=== PATIENT | female | born 1965 | race Caucasian/White ===

== ENCOUNTER 2020-10-01 17:23 | Emergency (ER) | payer OTHER, SELFPAY ==
[2020-10-01 17:35] VITALS: BP 123/83; PULSE 117; RESP 16; TEMP 38; O2SAT 98
[2020-10-01] MEDS: TETANUS,DIPHTHERIA,AC PERTUSSIS ADULT (0.5 ML) BOOSTRIX IM (17:49)
--- NOTE | 2020-10-01 18:05 | ED.WOUNDLAC ---
HPI - Wound/Laceration General Chief Complaint: Wound/Laceration Stated Complaint: rash/fish hook injury Time Seen by Provider: 10/01/20 17:44 Source: patient and RN notes reviewed Mode of arrival: ambulatory Limitations: no limitations History of Present Illness HPI narrative: Patient presents today with 2 concerns. She believes that she was exposed to poison rosemarie/sumac/oak while she was cleaning a wood pile last night near her home and she has developed a pruritic rash causing swelling to her face. She has tried no treatment prior to arrival as she does not have anything at home and did not have a ride to go obtain any [id number]-[id number] medication. She has been applying ice without relief. Denies shortness of breath or difficulty swallowing. Denies swelling of the lips or tongue. Patient also states she has had a fishhook embedded in her left second finger for the past 8 hours. She cut the hook off and has been waiting for a ride at home for transport to urgent care for removal. She currently rates the pain in her finger 7/10, which increases with movement. She has not tried any OTC interventions for pain as she did not have any medication for pain at home prior to arrival. Denies numbness or tingling in the finger. States she has significant rheumatoid arthritis and has swelling in the fingers at baseline. She does not currently have a PCP. Related Data Allergies Allergy/AdvReac Type Severity Reaction Status Date / Time No Known Allergies Allergy Verified 10/01/20 17:33 Review of Systems Review of Systems: Narrative: CONSTITUTIONAL: Denies body aches, fever, chills, or sweats. EYES: Denies visual changes, redness, or discharge. ENT: Denies rhinorrhea, congestion, sore throat, or otalgia. CARDIOVASCULAR: Denies chest pain, palpitations, or edema. RESPIRATORY: Denies cough or dyspnea. GASTROINTESTINAL: Denies abdominal pain, nausea, vomiting, or diarrhea. GENITOURINARY: Denies dysuria or hematuria. SKIN: + Pruritic rash to face. Embedded fishhook to left second finger MUSCULOSKELETAL: Denies back pain, joint pain, or myalgia. NEUROLOGIC: Denies headache, numbness, tingling, or weakness. PSYCH: Denies depression or anxiety. [facility] Past Medical History Medical History (Updated 10/02/20 @ 08:49 by ANDRE MohamudP, ) Rheumatoid arthritis Surgical History Surgical History (Updated 10/02/20 @ 08:50 by Nicci Hargrove, CRIS, ) H/O thyroidectomy H/O tubal ligation Hx of tonsillectomy Comments At time of signature, I have reviewed and agree with nursing past medical, surgical, social and family history unless otherwise noted. Please see nursing chart for further information. There is no relevant family history pertinent to the presenting complaint Exam Narrative: Exam Narrative: GENERAL: Chronically ill-appearing, well-nourished, and in no acute distress. HEAD: Normocephalic. EYES: EOMI. PERRL. No redness or drainage. Conjunctivae normal. ENT: Mucous membranes pink and moist. Nares clear. No rhinorrhea. Throat normal. Uvula midline. Mild swelling with faintly erythematous maculopapular rash to forehead and bilateral cheeks, causing swelling to the bilateral upper and lower eyelids. No induration, drainage. NECK: Normal AROM. Supple. No lymphadenopathy. CHEST: No respiratory distress. EXTREMITIES: embedded fish hook to dorsum of DIP of left second finger with mild surrounding erythema. All fingers with chronic rheumatological joint swelling. Distal sensation intact. Capillary refill normal. AROM of the affected finger is limited due to foreign body, pain, and chronic joint swelling. SKIN: Warm, dry. Capillary refill normal. Normal skin turgor. NEURO: No focal deficits. Alert and oriented x3. Gait steady. PSYCH: Normal affect. No signs of depression or anxiety. Course Vital Signs Vital signs: Vital Signs Temperature 100.4 F H 10/01/20 17:35 Pulse Rate 117 H 10/01/20 17:35 Respiratory
== END 2020-10-01 18:13 | disposition home or self-care (01) ==
PROVIDERS: Emergency Provider Nurse Practitioner
DX: L25.9 Unspecified contact dermatitis, unspecified cause (principal); S61.241A Puncture wound with foreign body of left index finger without damage to nail, initial encounter; X58.XXXA Exposure to other specified factors, initial encounter; Z23 Encounter for immunization; M06.9 Rheumatoid arthritis, unspecified
CPT/HCPCS: 10120; 90471; 90715; 99203; G0463

== ENCOUNTER 2021-12-06 17:03 | Inpatient (IN) | payer OTHER, SELFPAY ==
--- NOTE | ~2021-12-06 | CT_ITS ---
EXAMINATION: CTA chest PE protocol DATE: 12/11/2021 13:12 INDICATION: Shortness of breath. TECHNIQUE: Computed tomography angiography (CTA) of the chest was performed with 100 mL Omnipaque-350 intravenous contrast timed to evaluate the pulmonary arteries. Coronal maximum intensity projection 3D-reconstructions were created by the technologist. Automated exposure control and iterative reconst ruction technique were employed. The dose-length product was 255.22 mGy-cm. COMPARISON: Chest 2 views 12/06/2021 FINDINGS: There are patchy airspace and groundglass opacities with septal thickening throughout the l ungs. No pleural effusion. The heart size is normal. No pericardial effusion. There is no pulmonary e mbolus. There is a large sliding hiatal hernia. There is severe cervical and thoracic spondylosis. Th ere is mild chronic anterior wedging of multiple thoracic vertebral bodies. IMPRESSION: 1. No pulmonary embolus. 2. Diffuse lung disease, consistent with COVID-19 pneumonia. 3. Large sliding hiatal hernia. Reviewed, dictated and finalized at location A. EW MANAGER
--- NOTE | ~2021-12-06 | XR_ITS ---
XR chest 2V DATE: 12/06/2021 17:27 INDICATION: Cough, fever TECHNIQUE: PA and lateral views COMPARISON: None FINDINGS: There are extensive patchy infiltrates scattered throughout both lungs, consistent with frankie ateral Covid pneumonia. Normal heart size. No pleural effusion or pulmonary vascular congestion or pneumothorax. Diffuse osteopenia. IMPRESSION: Extensive patchy bilateral pulmonary infiltrates consistent with Covid pneumonia Reviewed, dictated and finalized at location A. ETING ADMIN IMPRESSION: Extensive patchy bilateral pulmonary infiltrates consistent with Co vid pneumonia
[2021-12-06 17:07] VITALS: BP 110/65; PULSE 122; RESP 20; TEMP 37.8; O2SAT 91
--- NOTE | 2021-12-06 17:09 | ECG_ITS ---
Measurements Intervals [place] Rate: 138 P: 58 TN: 148 QRS: 32 QRSD: 90 T: 38 QT: 353 QTc: 537 Interpretive Statements SINUS TACHYCARDIA BASELINE ARTIFACT- I, II, III, AVR, AVL, AVF, V4-V6 ABNORMAL ECG Electronically Signed On 12-06-2021 21:06:21 LEAD PERSON by Humberto Muñoz D.O.
[2021-12-06 19:09] LABS: Basophils Percent Auto 0.3 % (0.2-1.2); Hematocrit 36.6 % (37.0-47.0); Hemoglobin 11.7 g/dL (12.0-15.0); Immature Granulocyte Absolute 0.06 K/mm3 (0.00-0.031); Immature Granulocyte Percent A 0.6 % (0-0.5); Lymphocytes Percent Auto 4.1 % (18.3-44.2); Mean Corpuscular Hemoglobin 25.9 pg (26-34); Mean Corpuscular Volume 81.2 fl (80-100); Mean Platelet Volume 10.7 fl (7.4-10.4); Monocytes Absolute Auto 0.3 K/mm3 (0.1-0.6); Monocytes Percent Auto 3.3 % (2.6-8.5); Neutrophils Percent Auto 91.7 % (45.5-73.1); Platelet Count Result 461 k/mm3 (150-375); Red Blood Count 4.51 M/mm3 (4.2-5.4); White Blood Count 9.9 K/mm3 (4.5-10.0)
[2021-12-06 19:19] LABS: INR 1.1; Prothrombin Time 13.7 Seconds (11.1-14.7)
[2021-12-06 19:20] LABS: Alanine Aminotransferase 31 U/L (4-35); Albumin Level 3.9 g/dL (3.5-5.1); Alkaline Phosphatase 85 U/L (38-126); Anion Gap 10 mmol/L (8-16); Aspartate Amino Transferase 75 U/L (14-36); Bilirubin,Total 0.7 mg/dL (0.2-1.3); Blood Urea Nitrogen 10 mg/dL (7-17); Calcium 8.3 mg/dL (8.4-10.2); Carbon Dioxide 26 mmol/L (22-30); Chloride 96 mmol/L (98-107); Estimated CRCL calculation 90 ml/min; Estimated Glomerular Filt Rate > 60; Glucose 190 mg/dL (65-110); Lipase 43 U/L (23-300); Partial Thromboplastin Time 28.8 SECONDS (22.3-36.8); Sodium 132 mmol/L (137-145)
[2021-12-06 19:31] LABS: Troponin I < 0.012 ng/mL (0.000-0.034)
[2021-12-06 20:42] VITALS: BP 100/71; PULSE 94; TEMP 37.1; O2SAT 93
[2021-12-06 22:24] LABS: Troponin I < 0.012 ng/mL (0.000-0.034)
[2021-12-06 23:15] VITALS: PULSE 84; O2SAT 95
[2021-12-06 23:17] VITALS: BP 116/74; PULSE 91; RESP 18; O2SAT 94
[2021-12-06 23:31] VITALS: BP 100/62; PULSE 80; RESP 22; O2SAT 94
[2021-12-06 23:44] LABS: Lactate Dehydrogenase 1109 U/L (313-618)
[2021-12-06 23:46] VITALS: BP 100/68; PULSE 91; RESP 25; O2SAT 98
[2021-12-07] VITALS (12 sets, daily range): BP systolic 94–116; BP diastolic 67–80; PULSE 70–97; RESP 16–34; TEMP 36.1–36.7; O2SAT 92–97
[2021-12-07] MEDS: ALBUTEROL SULFATE (*SP) INHALER 4 PUFF INHALATION (00:17)
[2021-12-07 00:19] LABS: Alveolar/Arterial O2 Gradient 53.4 mmHg; Base Excess ABG 4.2 mEq/l (+/-2.0); Fractional Inspired Oxygen 21 %; HCO3 ABG 26.8 mEq/l (22.0-26.0); Oxygen Saturation ABG 92.2 % (95.0-100.0); Oxyhemoglobin 89.6 % THb (90.0-100.0); PCO2 ABG 33.7 mmHg (35.0-45.0); PO2 FiO2 Ratio Arterial Blood 2.67 %; Total Hemoglobin 11.9 g/dL (12.0-18.0)
[2021-12-07 00:22] LABS: pH ABG 7.519 (7.350-7.450)
--- NOTE | 2021-12-07 00:39 | ED.SOB ---
HPI - SOB/Dyspnea General Chief Complaint: Shortness of Breath/Dyspnea Stated Complaint: sob, coughing blood Time Seen by Provider: 12/06/21 22:59 Source: patient Mode of arrival: ambulatory Limitations: no limitations History of Present Illness HPI Narrative: 56-year-old female Takes no medications, smokes a pack a day, and is not immunized against Covid for reasons unknown She notes that she went to a large gathering around and got sick several days after that and has had progressively increasing shortness of breath and cough for a week or so She has body aches and a low-grade temp Related Data Allergies Allergy/AdvReac Type Severity Reaction Status Date / Time No Known Allergies Allergy Verified 12/06/21 23:18 Review of Systems Review of Systems: All systems reviewed & are unremarkable except as noted in HPI and below Constitutional: Constitutional: Reports no additional constitutional complaints, Denies chills, Reports fatigue, Reports fever(s), Denies headache(s) and Reports weakness Eyes: Eyes: Reports no additional eye complaints and Denies change in vision ENT: Denies headache(s) and Denies sore throat Cardiovascular: Cardiovascular: Denies chest pain and Denies dyspnea Respiratory: Respiratory: Reports cough and Reports dyspnea Gastrointestinal: Gastrointestinal: Denies abdominal pain, Denies diarrhea and Denies vomiting Genitourinary: Genitourinary: Denies urinary frequency and Denies dysuria Musculoskeletal: Musculoskeletal: Reports myalgias, Denies deformity, Denies arthralgias, Denies joint swelling and Denies numbness Integumentary/Breasts: Skin/Breast: Denies rash and Denies wounds Neurologic: Reports headache(s), Denies focal weakness and Denies numbness Psychiatric: Psychiatric: Reports no additional psychiatric complaints Endocrine: Endocrine: Reports no additional endocrine complaints Hematologic/Lymphatic: Hematologic/Lymphatic: Reports no additional hematologic/lymphatic complaints Allergic/Immunologic: Allergic/Immunologic: Reports no additional allergic/immunologic complaints [facility] Past Medical History Medical History Rheumatoid arthritis Surgical History Surgical History H/O thyroidectomy H/O tubal ligation Hx of tonsillectomy Exam Const: General: cooperative and alert Orientation/consciousness: patient oriented x3 (alert) HENMT: Head: normal to inspection, normocephalic and atraumatic Ears: external ears normal General nose exam: no epistaxis Mouth: Yes dry mucous membranes Eyes: Conjunctivae: conjunctivae normal EOM: EOMs intact bilaterally Neck: Neck: normal visual inspection, no lymphadenopathy, supple and no JVD Resp: Effort & Inspection: normal respiratory effort and not labored Auscultation: crackles, no rales, rhonchi, no wheezes and other (BS =) Cardio: Rate: regular rate and tachycardic Rhythm: regular rhythm Heart sounds: no murmurs GI: GI Palp: Yes Soft to palpation and No Tenderness to palpation present (GI) Skin: General skin exam: normal color and no rashes or lesions noted Neuro: General: patient oriented x3 (alert) and moves all extremities Speech: normal speech Extrem: General: normal to inspection and no pedal edema Psych: Affect: normal affect Course Course Emergency Course: Discussed with hospitalist for admission Vital Signs Vital signs: Vital Signs Temperature 37.8 C H 12/06/21 17:07 Pulse Rate 122 H 12/06/21 17:07 Respiratory Rate 20 12/06/21 17:07 Blood Pressure 110/65 12/06/21 17:07 Pulse Oximetry 91 12/06/21 17:07 Temperature 37.1 C 12/06/21 20:42 Pulse Rate 89 12/07/21 00:19 Respiratory Rate 20 12/07/21 00:19 Blood Pressure 102/80 12/07/21 00:01 Pulse Oximetry 94 12/07/21 00:01 MDM - SOB/Dyspnea Lab Data Result diagrams: 12/06/21 18:53 12/06/21 1
[2021-12-07] MEDS: POTASSIUM CHLORIDE 20 MEQ PACKET (FOR LIQUID) 60 MEQ PO (00:40)
--- NOTE | 2021-12-07 00:43 | PM.IMHP ---
H&P: HPI History of Present Illness Date/Time: 12/07/21 00:43 Chief Complaint: Shortness of breath Narrative: This is a 56-year-old female with no significant past medical history, patient presented to the emergency room due to worsening shortness of breath for now for 3 weeks or so patient had a gathering at her house and several of the visitors turned out positive with COVID patient tested positive for COVID about 3 weeks ago as well and she has progressively gotten more short of breath has cough with sputum production, generalized malaise, fevers ,rigors ,chills, poor appetite, body aches and pains. Preliminary workup was significant for chest x-ray with diffuse bilateral lung infiltrates. Patient has been admitted for further evaluation, management and treatment Review of Systems Review of Systems: Shortness of breath, cough productive of sputum , poor appetite, generalized malaise, body aches and pain, fatigue. Constitutional: Constitutional: Reports chills, Reports fatigue, Reports fever(s), Reports lethargy, Reports malaise, Reports poor appetite and Reports weakness Eyes: Eyes: Denies change in vision ENT: Denies dysphagia, Denies vertigo, Denies dizziness, Denies nasal congestion, Denies nasal discharge, Denies nasal obstruction and Denies odynophagia Cardiovascular: Cardiovascular: Denies pedal edema, Denies claudication, Denies leg edema, Denies radiating jaw, neck or arm pain, Denies palpitations, Denies dyspnea on exertion and Denies orthopnea Respiratory: Respiratory: Reports change in phlegm color, Reports cough, Reports excessive phlegm production and Reports dyspnea Gastrointestinal: Gastrointestinal: Denies abdominal pain, Denies dyspepsia, Denies heartburn, Denies diarrhea, Denies nausea and Denies vomiting Genitourinary: Genitourinary: Denies dysuria Musculoskeletal: Musculoskeletal: Reports myalgias Integumentary/Breasts: Skin/Breast: Denies rash Neurologic: Denies vertigo, Denies dizziness, Denies focal weakness and Denies Sensory deficit (Neuro) Psychiatric: Psychiatric: Reports no additional psychiatric complaints and Reports as per HPI Endocrine: Endocrine: Denies heat intolerance, Denies increase in ring/shoe/hat size, Denies polyphagia, Denies polydipsia, Denies polyuria and Denies palpitations Hematologic/Lymphatic: Hematologic/Lymphatic: Reports no additional hematologic/lymphatic complaints and Reports as per HPI Allergic/Immunologic: Allergic/Immunologic: Reports no additional allergic/immunologic complaints and Reports as per HPI PMFSH Past Medical History Medical History Rheumatoid arthritis Surgical History Surgical History H/O thyroidectomy H/O tubal ligation Hx of tonsillectomy Social History Social History Smoking packs per day: 1 Smoking cigarettes per day: 20.0 Years smoked: 40 Smoking pack-years: 40.00 Smoking status: Current every day smoker Tobacco type: cigarettes Alcohol intake: former Substance use: current Substance use type: marijuana Other substance usage details: occasional marjuana use per patient Spiritual care concerns: No Meds Home Medications and Allergies Allergies Allergy/AdvReac Type Severity Reaction Status Date / Time No Known Allergies Allergy Verified 12/06/21 23:18 Vital Signs Vital Signs - 24 hr 12/06/21 17:07 12/06/21 20:42 12/06/21 23:15 Temperature 100.1 F H 98.8 F Pulse Rate 122 H 94 84 Respiratory Rate 20 Blood Pressure 110/65 100/71 Pulse Oximetry 91 93 95 12/06/21 23:17 12/06/21 23:31 12/06/21 23:46 Temperature Pulse Rate 91 80 91 Respiratory Rate 18 22 H 25 H Blood Pressure 116/74 100/62 100/68 Pulse Oximetry 94 94 98 12/07/21 00:01 12/07/21 00:19 Temperature Pulse Rate 86 89 Respiratory Rate 34 H 20 Blood Pressure 102/80 Pulse Ox
--- NOTE | 2021-12-07 01:24 | PC.NURSE ---
Pt sister (Catherine- [phone]) may be updated by phone per pt.
[2021-12-07 02:39] LABS: SARS-CoV-2 RNA PCR Positive
[2021-12-07] MEDS: LACTATED RINGERS 1,000 ML 75 ML IV CONT ×2 (02:45→16:59)
[2021-12-07] MEDS: cefTRIAXone 2 GM in SODIUM CHLORIDE 0.9% IV 100 ML 200 ML IVPB (06:33)
[2021-12-07 06:46] LABS: Alanine Aminotransferase 30 U/L (4-35); Estimated CRCL calculation 109 ml/min; Estimated Glomerular Filt Rate > 60
[2021-12-07 07:18] LABS: INR 1.1; Prothrombin Time 13.8 Seconds (11.1-14.7)
[2021-12-07 07:56] LABS: Device ROOM AIR
[2021-12-07] MEDS: ENOXAPARIN 40 MG/0.4 ML SYRINGE SUB-Q (08:57)
[2021-12-07] MEDS: REMDESIVIR 200 MG/NS 250 ML 200 MG/250 ML BAG 250 MG IVPB (08:57)
[2021-12-08] VITALS (8 sets, daily range): BP systolic 101–120; BP diastolic 58–74; PULSE 78–109; RESP 14–20; TEMP 36.1–36.7; O2SAT 90–96
[2021-12-08] MEDS: cefTRIAXone 2 GM in SODIUM CHLORIDE 0.9% IV 100 ML 200 ML IVPB (05:49)
[2021-12-08 07:17] LABS: Alanine Aminotransferase 31 U/L (4-35); Estimated CRCL calculation 90 ml/min; Estimated Glomerular Filt Rate > 60
[2021-12-08 07:19] LABS: INR 1.1
[2021-12-08] MEDS: REMDESIVIR 100 MG/NS 250 ML 100 MG/250 ML BAG 250 MG IVPB (09:46)
[2021-12-08] MEDS: ENOXAPARIN 40 MG/0.4 ML SYRINGE SUB-Q (09:46)
[2021-12-08 10:06] LABS: Alveolar/Arterial O2 Gradient 28.6 mmHg; Base Excess ABG 0.1 mEq/l (+/-2.0); Device ROOM AIR; Fractional Inspired Oxygen 21 %; Modified Allen's Test Pass; Oxygen Content ABG 14.4 %vol (16.0-22.0); Oxyhemoglobin 95.2 % THb (90.0-100.0); PCO2 ABG 31.2 mmHg (35.0-45.0); PO2 ABG 83.8 mmHg (80.0-100.0); PO2 FiO2 Ratio Arterial Blood 3.99 %; Site Drawn RIGHT RADIAL; Total Hemoglobin 10.7 g/dL (12.0-18.0); pH ABG 7.485 (7.350-7.450)
[2021-12-08 10:25] LABS: Basophils Percent Auto 0.1 % (0.2-1.2); Hemoglobin 9.7 g/dL (12.0-15.0); Immature Granulocyte Absolute 0.22 K/mm3 (0.00-0.031); Lymphocytes Percent Auto 4.1 % (18.3-44.2); Mean Corpuscular HGB Conc 31.3 g/dl (32-36); Mean Corpuscular Hemoglobin 26.2 pg (26-34); Mean Corpuscular Volume 83.8 fl (80-100); Mean Platelet Volume 11.5 fl (7.4-10.4); Monocytes Percent Auto 4.8 % (2.6-8.5); Neutrophils Absolute Auto 19.7 K/mm3 (1.3-6.7); Platelet Count Result 569 k/mm3 (150-375); Red Cell Distribution Width 17.3 % (11.5-14.5); White Blood Count 21.9 K/mm3 (4.5-10.0)
[2021-12-08 10:27] LABS: Alanine Aminotransferase 31 U/L (4-35); Alkaline Phosphatase 59 U/L (38-126); Anion Gap 10 mmol/L (8-16); Aspartate Amino Transferase 52 U/L (14-36); Bilirubin,Total 0.3 mg/dL (0.2-1.3); Blood Urea Nitrogen 16 mg/dL (7-17); CRP 5.8 mg/dL (<1.0); Calcium 8.1 mg/dL (8.4-10.2); Carbon Dioxide 24 mmol/L (22-30); Chloride 102 mmol/L (98-107); Estimated CRCL calculation 90 ml/min; Estimated Glomerular Filt Rate > 60; Glucose 231 mg/dL (65-110); Potassium 3.5 mmol/L (3.4-5.0); Sodium 136 mmol/L (137-145)
[2021-12-08 10:37] LABS: D Dimer 0.72 ug/mL (<0.48)
--- NOTE | 2021-12-08 14:50 | PM.IMPN ---
Progress Note: A&P Assessment and Plan (1) Pneumonia due to COVID-19 virus: Code(s): U07.1 - COVID-19; J12.82 - Pneumonia due to coronavirus disease 2019 Status: Acute Assessment and Plan: -noted on CXR -tested positive 3 weeks ago, still tested positive here on admission 12/06 -Started on remdesivir and dexamethasone. Per current guidelines I have stopped the dexamethasone as she is not currently requiring oxygen. Will continue remdesivir. -Rocephin and Zithromax for secondary antibacterial coverage -blood cultures pending (2) Acute hypoxemic respiratory failure due to COVID-19: Code(s): U07.1 - COVID-19; J96.01 - Acute respiratory failure with hypoxia Status: Acute Assessment and Plan: -it does not appear that patient has been on supplemental oxygen during admission, however her initial ABG showed a pO2 of 56 -she was 88% on RA at rest when I evaluated her -repeat ABG improved with pO2 of 83.8 -home oxygen evaluation ordered (3) Sepsis: Code(s): A41.9 - Sepsis, unspecified organism Status: Acute Assessment and Plan: -febrile and tachycardic on arrival -now leukocytosis of 21.9 increased from 9.9 just 2 days ago -she only had one dose of steroids -on IV rocephin and azithromycin for bacterial coverage, possibly secondary bacterial pneumonia -blood cultures pending -will also check UA Subjective Date/time seen: 12/08/21 14:50 Interval history: 56-year-old female with no significant past medical history admitted to the hospital for covid pneumonia. Pt was on room air at the time of my exam, and with my pulse ox she was 88%. She reports that she feels weak and continues to have a cough. She is sob particularly with any type of exertion. Review of Systems Review of Systems: General: + fevers Eyes: Denies vision changes ENT: + nasal congestion, denies sore throat Respiratory: + cough, + shortness of breath Cardiovascular: Denies chest pain or lower extremity edema Gastrointestinal: Denies abdominal pain, vomiting, or diarrhea Genitourinary: Denies dysuria Musculoskeletal: Denies back pain Neurological: Denies headache or motor weakness Integumentary: Denies rash Exam Narrative: General: No acute distress, mildly ill appearing, lethargic Eyes: PERRL, no scleral icterus HEENT: NCAT, external ears normal, MMM Respiratory: No respiratory distress, Lungs CTA bilaterally, no wheezing Cardiovascular: RRR, no murmur Abdominal: Soft, nontender, non distended, no rebound or guarding Musculoskeletal: Moves all 4 extremities, no edema Neurological: A/Ox3, speech normal, no facial asymmetry Skin: Warm, dry, no rashes Psychiatric: Normal affect, normal mood Objective Data Vital Signs Vital Signs: Vital Signs - 24 hr 12/07/21 20:00 12/07/21 23:57 12/08/21 03:45 Temperature 97.0 F L 97.7 F 98.1 F Pulse Rate 97 89 83 Respiratory Rate 17 18 14 Blood Pressure 116/69 107/67 105/67 Pulse Oximetry 97 92 96 12/08/21 08:00 12/08/21 11:54 Temperature 97.0 F L 97.1 F L Pulse Rate 87 87 Respiratory Rate 20 20 Blood Pressure 120/74 110/70 Pulse Oximetry 93 92 Intake/Output Intake/Output: Intake & Output 12/05/21 12/06/21 12/07/21 12/08/21 23:59 23:59 23:59 23:59 Intake Total 3330 2590 Output Total 300 Balance 3330 2290 Meds/Results Medications: Active Medications Generic Name Dose Route Start Last Admin Trade Name Freq PRN Reason Stop Dose Admin Acetaminophen 650 mg 12/07/21 01:32 Acetaminophen 325 Mg Tablet PO Q4H PRN Mild Pain (1-3) or Fever Albuterol 4 puff 12/07/21 01:32 Albuterol Sulfate (*Sp) Aerosol 1 Puff INHALATION Q6HRT PRN Shortness Of Breath Enoxaparin Sodium 40 mg 12/07/21 09:00 12/08/21 09:46 Enoxaparin 40 Mg/0.4 Ml Syringe SUB-Q 40 mg DAILY AG Administration Remdesivir 100 mg in 250 mls @ 250 mls/hr 12/08/21 10:00 12/08/21 10:45 IVPB 12/11/21 10:
--- NOTE | 2021-12-08 15:21 | PCRCNOTE ---
HOME O2 EVAL COMPLETE, NO REQUIREMENTS.
[2021-12-08] MEDS: ACETAMINOPHEN 325 MG TABLET 650 MG PO (17:13)
[2021-12-09] VITALS (7 sets, daily range): BP systolic 98–127; BP diastolic 56–79; PULSE 70–103; RESP 14–20; TEMP 36.1–37.6; O2SAT 91–97
[2021-12-09] MEDS: cefTRIAXone 2 GM in SODIUM CHLORIDE 0.9% IV 100 ML 200 ML IVPB (05:14)
[2021-12-09 10:07] LABS: Basophils Percent Auto 0.2 % (0.2-1.2); Eosinophils Percent Auto 0.2 % (0-4.4); Hematocrit 35.9 % (37.0-47.0); Hemoglobin 11.1 g/dL (12.0-15.0); Immature Granulocyte Absolute 0.09 K/mm3 (0.00-0.031); Immature Granulocyte Percent A 0.7 % (0-0.5); Lymphocytes Absolute Auto 1.63 K/mm3 (0.9-3.2); Lymphocytes Percent Auto 13.4 % (18.3-44.2); Mean Corpuscular HGB Conc 30.9 g/dl (32-36); Mean Corpuscular Hemoglobin 25.3 pg (26-34); Mean Corpuscular Volume 81.8 fl (80-100); Mean Platelet Volume 9.9 fl (7.4-10.4); Monocytes Absolute Auto 1.2 K/mm3 (0.1-0.6); Monocytes Percent Auto 9.5 % (2.6-8.5); Neutrophils Absolute Auto 9.3 K/mm3 (1.3-6.7); Platelet Count Result 663 k/mm3 (150-375); Red Blood Count 4.39 M/mm3 (4.2-5.4); Red Cell Distribution Width 17.3 % (11.5-14.5); White Blood Count 12.2 K/mm3 (4.5-10.0)
[2021-12-09 10:15] LABS: INR 1.1; Prothrombin Time 14.2 Seconds (11.1-14.7)
[2021-12-09 10:17] LABS: D Dimer 0.99 ug/mL (<0.48)
[2021-12-09] MEDS: ENOXAPARIN 40 MG/0.4 ML SYRINGE SUB-Q (10:24)
[2021-12-09 10:26] LABS: Alanine Aminotransferase 29 U/L (4-35); Albumin Level 3.2 g/dL (3.5-5.1); Alkaline Phosphatase 70 U/L (38-126); Anion Gap 7 mmol/L (8-16); Aspartate Amino Transferase 34 U/L (14-36); Bilirubin,Total 0.3 mg/dL (0.2-1.3); Blood Urea Nitrogen 15 mg/dL (7-17); Calcium 8.1 mg/dL (8.4-10.2); Carbon Dioxide 28 mmol/L (22-30); Chloride 104 mmol/L (98-107); Estimated CRCL calculation 90 ml/min; Estimated Glomerular Filt Rate > 60; Glucose 107 mg/dL (65-110); Sodium 139 mmol/L (137-145)
[2021-12-09] MEDS: POTASSIUM CHLORIDE 20 MEQ TABLET 40 MEQ PO (12:31)
[2021-12-09] MEDS: REMDESIVIR 100 MG/NS 250 ML 100 MG/250 ML BAG 250 MG IVPB (12:32)
--- NOTE | 2021-12-09 15:46 | PM.IMPN ---
Progress Note: A&P Assessment and Plan (1) Pneumonia due to COVID-19 virus: Code(s): U07.1 - COVID-19; J12.82 - Pneumonia due to coronavirus disease 2019 Status: Acute Assessment and Plan: -noted on CXR -tested positive 3 weeks ago, still tested positive here on admission 12/06 -Started on remdesivir and dexamethasone. Per current guidelines I have stopped the dexamethasone as she is not currently requiring oxygen. Will continue remdesivir. -Rocephin and Zithromax for secondary antibacterial coverage -blood cultures NGTD (2) Acute hypoxemic respiratory failure due to COVID-19: Code(s): U07.1 - COVID-19; J96.01 - Acute respiratory failure with hypoxia Status: Acute Assessment and Plan: -it does not appear that patient has been on supplemental oxygen during admission, however her initial ABG showed a pO2 of 56 -she was 88% on RA at rest when I evaluated her -repeat ABG improved with pO2 of 83.8 -home oxygen evaluation ordered -pt wheezing, changed albuterol from prn to scheduled (3) Sepsis: Code(s): A41.9 - Sepsis, unspecified organism Status: Acute Assessment and Plan: -febrile and tachycardic on arrival -had leukocytosis of 21.9 which has improved to 12.9 -she only had one dose of steroids -on IV rocephin and azithromycin for bacterial coverage, possibly secondary bacterial pneumonia -blood cultures pending, NGTD -will also check UA Subjective Date/time seen: 12/09/21 15:46 Interval history: 56-year-old female with no significant past medical history admitted to the hospital for covid pneumonia. Pt was on room air at the time of my exam, and with my pulse ox she was 96%. She reports that she feels weak and continues to have a cough. Reports chest pain when she coughs. She is sob particularly with any type of exertion. Review of Systems Review of Systems: General: denies fevers Eyes: Denies vision changes ENT: + nasal congestion, denies sore throat Respiratory: + cough, + shortness of breath Cardiovascular: + chest pain, denies lower extremity edema Gastrointestinal: Denies abdominal pain, vomiting, or diarrhea Genitourinary: Denies dysuria Musculoskeletal: Denies back pain Neurological: Denies headache or motor weakness Integumentary: Denies rash Exam Narrative: General: No acute distress, non toxic Eyes: PERRL, no scleral icterus HEENT: NCAT, external ears normal, MMM Respiratory: No respiratory distress, diffuse wheezing throughout all lung chou Cardiovascular: RRR, no murmur Abdominal: Soft, nontender, non distended, no rebound or guarding Musculoskeletal: Moves all 4 extremities, no edema Neurological: A/Ox3, speech normal, no facial asymmetry Skin: Warm, dry, no rashes Psychiatric: Normal affect, normal mood Objective Data Vital Signs Vital Signs: Vital Signs - 24 hr 12/08/21 15:51 12/08/21 20:00 12/09/21 00:00 Temperature 97.3 F L 97.1 F L 96.9 F L Pulse Rate 88 78 70 Respiratory Rate 20 16 15 Blood Pressure 110/58 L 101/62 120/64 Pulse Oximetry 90 95 96 12/09/21 04:00 12/09/21 08:00 12/09/21 12:00 Temperature 97.6 F 97.3 F L 97.9 F Pulse Rate 89 87 89 Respiratory Rate 17 14 20 Blood Pressure 127/79 101/73 106/63 Pulse Oximetry 97 91 92 Intake/Output Intake/Output: Intake & Output 12/06/21 12/07/21 12/08/21 12/09/21 23:59 23:59 23:59 23:59 Intake Total 3330 2932 1610 Output Total 300 600 Balance 3330 2632 1010 Meds/Results Medications: Active Medications Generic Name Dose Route Start Last Admin Trade Name Freq PRN Reason Stop Dose Admin Acetaminophen 650 mg 12/07/21 01:32 12/08/21 17:13 Acetaminophen 325 Mg Tablet PO 650 mg Q4H PRN Administration Mild Pain (1-3) or Fever Albuterol 4 puff 12/07/21 01:32 Albuterol Sulfate (*Sp) Aerosol 1 Puff INHALATION Q6HRT PRN Shortness Of Breath Enoxaparin Sodium 40 mg 12/07/21 09:00 12/09/21 10:24 Enoxa
[2021-12-09] MEDS: ALBUTEROL SULFATE (*SP) INHALER 4 PUFF INHALATION (20:45)
[2021-12-10] VITALS (12 sets, daily range): BP systolic 97–136; BP diastolic 58–84; PULSE 80–97; RESP 16–20; TEMP 35.7–37.8; O2SAT 93–97
[2021-12-10 00:38] LABS: Lactic Acid Reflex 1.3 mmol/L (0.7-2.1)
[2021-12-10] MEDS: ALBUTEROL SULFATE (*SP) INHALER 4 PUFF INHALATION ×4 (02:58→19:58)
[2021-12-10] MEDS: cefTRIAXone 2 GM in SODIUM CHLORIDE 0.9% IV 100 ML 200 ML IVPB (05:26)
[2021-12-10 08:40] LABS: Prothrombin Time 52.5 Seconds (11.1-14.7)
[2021-12-10 08:53] LABS: Alanine Aminotransferase 24 U/L (4-35); Alkaline Phosphatase 68 U/L (38-126); Anion Gap 8 mmol/L (8-16); Aspartate Amino Transferase 28 U/L (14-36); Bilirubin,Total 0.1 mg/dL (0.2-1.3); Blood Urea Nitrogen 9 mg/dL (7-17); Carbon Dioxide 21 mmol/L (22-30); Chloride 107 mmol/L (98-107); Estimated CRCL calculation 90 ml/min; Estimated Glomerular Filt Rate > 60; Glucose 183 mg/dL (65-110); Sodium 136 mmol/L (137-145)
[2021-12-10 08:59] LABS: INR 6.2
[2021-12-10 10:31] LABS: Basophils Percent Auto 0.3 % (0.2-1.2); Eosinophils Absolute Auto 0.1 K/mm3 (0-0.3); Hematocrit 34.4 % (37.0-47.0); Hemoglobin 10.7 g/dL (12.0-15.0); Immature Granulocyte Absolute 0.11 K/mm3 (0.00-0.031); Immature Granulocyte Percent A 1.1 % (0-0.5); Lymphocytes Absolute Auto 2.04 K/mm3 (0.9-3.2); Lymphocytes Percent Auto 20.8 % (18.3-44.2); Mean Corpuscular HGB Conc 31.1 g/dl (32-36); Mean Corpuscular Hemoglobin 25.3 pg (26-34); Mean Corpuscular Volume 81.3 fl (80-100); Mean Platelet Volume 10.2 fl (7.4-10.4); Monocytes Percent Auto 9.8 % (2.6-8.5); Neutrophils Absolute Auto 6.6 K/mm3 (1.3-6.7); Platelet Count Result 700 k/mm3 (150-375); Red Blood Count 4.23 M/mm3 (4.2-5.4); Red Cell Distribution Width 17.7 % (11.5-14.5); White Blood Count 9.8 K/mm3 (4.5-10.0)
[2021-12-10 11:05] LABS: INR 1.1
[2021-12-10] MEDS: POTASSIUM CHLORIDE 20 MEQ PACKET (FOR LIQUID) 40 MEQ PO (11:27)
[2021-12-10] MEDS: guaiFENesin/CODEINE (*CRX) 200/20 MG 10 ML SYRUP PO ×3 (11:28→21:20)
--- NOTE | 2021-12-10 12:31 | PM.IMPN ---
Progress Note: A&P Assessment and Plan (1) Pneumonia due to COVID-19 virus: Code(s): U07.1 - COVID-19; J12.82 - Pneumonia due to coronavirus disease 2019 Status: Acute Assessment and Plan: -noted on CXR -tested positive 3 weeks ago, still tested positive here on admission 12/06 -Started on remdesivir and dexamethasone. I had held her decadron as she was not requiring oxygen, however she is still wheezing diffusely despite scheduled albuterol so I will restart this -Rocephin and Zithromax for secondary antibacterial coverage -blood cultures NGTD (2) Acute hypoxemic respiratory failure due to COVID-19: Code(s): U07.1 - COVID-19; J96.01 - Acute respiratory failure with hypoxia Status: Acute Assessment and Plan: -it does not appear that patient has been on supplemental oxygen during admission, however her initial ABG showed a pO2 of 56 -she was 88% on RA at rest when I evaluated her -repeat ABG improved with pO2 of 83.8 -home oxygen evaluation completed and shows no oxygen requirement -pt wheezing, changed albuterol from prn to scheduled -no change in wheezing w/ albuterol, added decadron (3) Sepsis: Code(s): A41.9 - Sepsis, unspecified organism Status: Acute Assessment and Plan: -febrile and tachycardic on arrival -had leukocytosis of 21.9 which has improved to 12.9 -she only had one dose of steroids -on IV rocephin and azithromycin for bacterial coverage, possibly secondary bacterial pneumonia -blood cultures pending, NGTD -will also check UA Subjective Date/time seen: 12/10/21 12:31 Interval history: 56-year-old female with no significant past medical history admitted to the hospital for covid pneumonia. She reports that she feels weak and continues to have a cough. Reports chest pain when she coughs. She is sob particularly with any type of exertion. Review of Systems Review of Systems: All systems reviewed & are unremarkable except as noted in HPI and below Exam Narrative: General: No acute distress, non toxic Eyes: PERRL, no scleral icterus HEENT: NCAT, external ears normal, MMM Respiratory: No respiratory distress, diffuse wheezing throughout all lung chuo no improvement Cardiovascular: RRR, no murmur Abdominal: Soft, nontender, non distended, no rebound or guarding Musculoskeletal: Moves all 4 extremities, no edema Neurological: A/Ox3, speech normal, no facial asymmetry Skin: Warm, dry, no rashes Psychiatric: Normal affect, normal mood Objective Data Vital Signs Vital Signs: Vital Signs - 24 hr 12/09/21 16:00 12/09/21 20:00 12/09/21 20:16 Temperature 99.7 F H 98.9 F Pulse Rate 98 103 H 89 Respiratory Rate 18 16 20 Blood Pressure 99/56 L 98/58 L Pulse Oximetry 91 93 12/10/21 00:00 12/10/21 02:30 12/10/21 04:00 Temperature 98.1 F 98.5 F Pulse Rate 89 90 91 Respiratory Rate 20 20 18 Blood Pressure 97/58 L 107/63 Pulse Oximetry 93 93 12/10/21 08:00 12/10/21 08:59 12/10/21 09:10 Temperature 98.3 F Pulse Rate 80 Respiratory Rate 18 Blood Pressure 99/67 L Pulse Oximetry 97 96 94 Intake/Output Intake/Output: Intake & Output 12/07/21 12/08/21 12/09/21 12/10/21 23:59 23:59 23:59 23:59 Intake Total 3330 2932 2090 812 Output Total 079 433 1486 Balance 3330 2632 1490 588 Meds/Results Medications: Active Medications Generic Name Dose Route Start Last Admin Trade Name Freq PRN Reason Stop Dose Admin Acetaminophen 650 mg 12/07/21 01:32 12/08/21 17:13 Acetaminophen 325 Mg Tablet PO 650 mg Q4H PRN Administration Mild Pain (1-3) or Fever Albuterol 4 puff 12/09/21 20:00 12/10/21 08:59 Albuterol Sulfate (*Sp) Inhaler INHALATION 4 puff Q6HRT AG Administration Dexamethasone Sodium Phosphate 6 mg 12/10/21 12:20 Dexamethasone Sod Phos Inj 10 Mg/Ml 1 Ml Vial IV PUSH 12/19/21 09:01 DAILY [facility] Enoxaparin Sodium 40 mg 12/07/21 09:00 12/10/21 09:02 En
[2021-12-10] MEDS: REMDESIVIR 100 MG/NS 250 ML 100 MG/250 ML BAG 250 MG IVPB (13:00)
[2021-12-10] MEDS: ACETAMINOPHEN 325 MG TABLET 650 MG PO (13:00)
[2021-12-11] VITALS (7 sets, daily range): BP systolic 110–129; BP diastolic 61–84; PULSE 85–92; RESP 16–20; TEMP 36.2–36.9; O2SAT 93–95; BMI 27.3
[2021-12-11] MEDS: ALBUTEROL SULFATE (*SP) INHALER 4 PUFF INHALATION ×4 (02:03→20:04)
[2021-12-11] MEDS: cefTRIAXone 2 GM in SODIUM CHLORIDE 0.9% IV 100 ML 200 ML IVPB (04:56)
[2021-12-11] MEDS: ACETAMINOPHEN 325 MG TABLET 650 MG PO (04:58)
[2021-12-11] MEDS: guaiFENesin/CODEINE (*CRX) 200/20 MG 10 ML SYRUP PO (04:58)
[2021-12-11 07:43] LABS: Basophils Percent Auto 0.1 % (0.2-1.2); Hematocrit 34.3 % (37.0-47.0); Hemoglobin 10.5 g/dL (12.0-15.0); Immature Granulocyte Absolute 0.14 K/mm3 (0.00-0.031); Immature Granulocyte Percent A 0.9 % (0-0.5); Lymphocytes Absolute Auto 1.29 K/mm3 (0.9-3.2); Lymphocytes Percent Auto 8.6 % (18.3-44.2); Mean Corpuscular HGB Conc 30.6 g/dl (32-36); Mean Corpuscular Hemoglobin 25.4 pg (26-34); Mean Corpuscular Volume 83.1 fl (80-100); Mean Platelet Volume 10.1 fl (7.4-10.4); Monocytes Percent Auto 6.5 % (2.6-8.5); Neutrophils Absolute Auto 12.5 K/mm3 (1.3-6.7); Neutrophils Percent Auto 83.9 % (45.5-73.1); Platelet Count Result 730 k/mm3 (150-375); Red Blood Count 4.13 M/mm3 (4.2-5.4); Red Cell Distribution Width 17.6 % (11.5-14.5)
[2021-12-11 07:54] LABS: INR 1.1; Prothrombin Time 13.6 Seconds (11.1-14.7)
[2021-12-11 07:56] LABS: D Dimer 0.87 ug/mL (<0.48)
[2021-12-11 08:10] LABS: Alanine Aminotransferase 23 U/L (4-35); Alkaline Phosphatase 62 U/L (38-126); Anion Gap 7 mmol/L (8-16); Aspartate Amino Transferase 27 U/L (14-36); Bilirubin,Total 0.4 mg/dL (0.2-1.3); Blood Urea Nitrogen 10 mg/dL (7-17); CRP 2.7 mg/dL (<1.0); Carbon Dioxide 20 mmol/L (22-30); Chloride 106 mmol/L (98-107); Estimated CRCL calculation 109 ml/min; Estimated Glomerular Filt Rate > 60; Glucose 311 mg/dL (65-110); Potassium 4.7 mmol/L (3.4-5.0); Sodium 133 mmol/L (137-145)
[2021-12-11] MEDS: ENOXAPARIN 40 MG/0.4 ML SYRINGE SUB-Q (10:09)
--- NOTE | 2021-12-11 10:11 | PM.IMPN ---
Progress Note: A&P Assessment and Plan (1) Pneumonia due to COVID-19 virus: Code(s): U07.1 - COVID-19; J12.82 - Pneumonia due to coronavirus disease 2019 Status: Acute Assessment and Plan: -noted on CXR -tested positive 3 weeks ago, still tested positive here on admission 12/06 -Started on remdesivir and dexamethasone. I had held her decadron as she was not requiring oxygen, however she is still wheezing diffusely despite scheduled albuterol so I will restart this -Rocephin and Zithromax for secondary antibacterial coverage -blood cultures NGTD (2) Acute hypoxemic respiratory failure due to COVID-19: Code(s): U07.1 - COVID-19; J96.01 - Acute respiratory failure with hypoxia Status: Acute Assessment and Plan: -it does not appear that patient has been on supplemental oxygen during admission, however her initial ABG showed a pO2 of 56 -she was 88% on RA at rest when I evaluated her -repeat ABG improved with pO2 of 83.8 -home oxygen evaluation completed and shows no oxygen requirement -pt wheezing, changed albuterol from prn to scheduled -no change in wheezing w/ albuterol, added decadron -her wheezing has resolved -elevated d-dimer, pt still sob, has been intermittently tachycardic, will check CTA chest to r/o PE (3) Sepsis: Code(s): A41.9 - Sepsis, unspecified organism Status: Acute Assessment and Plan: -febrile and tachycardic on arrival -had leukocytosis of 21.9 which has improved to 12.9 -she only had one dose of steroids -on IV rocephin and azithromycin for bacterial coverage, possibly secondary bacterial pneumonia -blood cultures pending, NGTD Subjective Date/time seen: 12/11/21 10:11 Interval history: 56-year-old female with no significant past medical history admitted to the hospital for covid pneumonia. She reports that she feels weak and continues to have a cough. Reports chest pain when she coughs. She is sob with exertion. She is visibly upset and anxious because the antibiotics have been burning through her IV and they have had to stick her multiple times. Trying to do CTA chest today but patient needs to check with her mom first to see if she's ever had an allergic reaction before because she is unsure. Review of Systems Review of Systems: All systems reviewed & are unremarkable except as noted in HPI and below Exam Narrative: General: No acute distress, non toxic Eyes: PERRL, no scleral icterus HEENT: NCAT, external ears normal, MMM Respiratory: No respiratory distress, lungs CTA bilaterally, no wheezing Cardiovascular: RRR, no murmur Abdominal: Soft, nontender, non distended, no rebound or guarding Musculoskeletal: Moves all 4 extremities, no edema Neurological: A/Ox3, speech normal, no facial asymmetry Skin: Warm, dry, no rashes Psychiatric: Normal affect, normal mood Objective Data Vital Signs Vital Signs: Vital Signs - 24 hr 12/10/21 12:00 12/10/21 13:00 12/10/21 14:00 Temperature 100.0 F H 100.0 F H 97.4 F L Pulse Rate 88 Respiratory Rate 16 Blood Pressure 99/66 L Pulse Oximetry 95 12/10/21 16:00 12/10/21 19:57 12/10/21 20:00 Temperature 96.3 F L 96.7 F L Pulse Rate 91 86 97 Respiratory Rate 18 20 20 Blood Pressure 136/84 100/80 Pulse Oximetry 97 94 12/11/21 02:02 12/11/21 04:00 12/11/21 05:26 Temperature 97.4 F L Pulse Rate 92 85 Respiratory Rate 20 20 Blood Pressure 114/65 Pulse Oximetry 94 95 12/11/21 09:17 Temperature Pulse Rate Respiratory Rate Blood Pressure Pulse Oximetry 95 Intake/Output Intake/Output: Intake & Output 12/08/21 12/09/21 12/10/21 12/11/21 23:59 23:59 23:59 23:59 Intake Total 2932 2090 1292 200 Output Total 513 950 0856 Balance 2632 1490 -508 200 Meds/Results Medications: Active Medications Generic Name Dose Route Start Last Admin Trade Name Freq PRN Reason Stop Dose Admin Acetaminophen 650 mg 12/07/21 01:32 12/11/21 04
[2021-12-11] MEDS: REMDESIVIR 100 MG/NS 250 ML 100 MG/250 ML BAG 125 MG IVPB (10:52)
[2021-12-11 15:19] LABS: Alanine Aminotransferase 25 U/L (4-35); Estimated CRCL calculation 90 ml/min; Estimated Glomerular Filt Rate > 60
[2021-12-11 15:24] LABS: INR 1.1; Prothrombin Time 13.8 Seconds (11.1-14.7)
[2021-12-12] VITALS: BP 113/75; PULSE 80; RESP 16; TEMP 36.1; O2SAT 98
[2021-12-12] MEDS: ALBUTEROL SULFATE (*SP) INHALER 4 PUFF INHALATION ×4 (02:00→21:40)
[2021-12-12 04:00] VITALS: BP 111/79; PULSE 79; RESP 16; TEMP 36.6; O2SAT 94
[2021-12-12 08:00] VITALS: BP 100/72; PULSE 98; RESP 24; TEMP 36.2; O2SAT 92
[2021-12-12] MEDS: ENOXAPARIN 40 MG/0.4 ML SYRINGE SUB-Q (09:27)
[2021-12-12] MEDS: ALPRAZolam (*CRX) 0.125 MG TABLET PO ×3 (09:27→23:45)
[2021-12-12 10:32] LABS: Basophils Percent Auto 0.1 % (0.2-1.2); Hematocrit 35.1 % (37.0-47.0); Hemoglobin 10.8 g/dL (12.0-15.0); Immature Granulocyte Absolute 0.14 K/mm3 (0.00-0.031); Immature Granulocyte Percent A 0.8 % (0-0.5); Lymphocytes Absolute Auto 2.22 K/mm3 (0.9-3.2); Lymphocytes Percent Auto 13.2 % (18.3-44.2); Mean Corpuscular HGB Conc 30.8 g/dl (32-36); Mean Corpuscular Hemoglobin 25.4 pg (26-34); Mean Corpuscular Volume 82.4 fl (80-100); Mean Platelet Volume 9.8 fl (7.4-10.4); Monocytes Absolute Auto 1.2 K/mm3 (0.1-0.6); Monocytes Percent Auto 7.2 % (2.6-8.5); Neutrophils Absolute Auto 13.2 K/mm3 (1.3-6.7); Neutrophils Percent Auto 78.7 % (45.5-73.1); Platelet Count Result 881 k/mm3 (150-375); Red Blood Count 4.26 M/mm3 (4.2-5.4); White Blood Count 16.8 K/mm3 (4.5-10.0)
[2021-12-12 10:44] LABS: Alanine Aminotransferase 22 U/L (4-35); Albumin Level 3.2 g/dL (3.5-5.1); Alkaline Phosphatase 77 U/L (38-126); Anion Gap 7 mmol/L (8-16); Aspartate Amino Transferase 23 U/L (14-36); Bilirubin,Total 0.2 mg/dL (0.2-1.3); Blood Urea Nitrogen 15 mg/dL (7-17); CRP 1.7 mg/dL (<1.0); Calcium 8.5 mg/dL (8.4-10.2); Carbon Dioxide 22 mmol/L (22-30); Chloride 105 mmol/L (98-107); Estimated CRCL calculation 89 ml/min; Estimated Glomerular Filt Rate > 60; Glucose 311 mg/dL (65-110); Potassium 3.9 mmol/L (3.4-5.0); Sodium 134 mmol/L (137-145)
[2021-12-12 10:51] LABS: D Dimer 0.64 ug/mL (<0.48)
[2021-12-12 10:54] LABS: Prothrombin Time 13.4 Seconds (11.1-14.7)
[2021-12-12 12:00] VITALS: BP 135/86; PULSE 100; RESP 20; TEMP 35.8; O2SAT 95
[2021-12-12 12:30] LABS: Glucose Point of Care 180 mg/dl (65-105)
[2021-12-12] MEDS: REMDESIVIR 100 MG/NS 250 ML 100 MG/250 ML BAG 250 MG IVPB (13:00)
[2021-12-12] MEDS: guaiFENesin/CODEINE (*CRX) 200/20 MG 10 ML SYRUP PO ×2 (13:01→23:45)
--- NOTE | 2021-12-12 14:13 | PM.IMPN ---
Progress Note: A&P Assessment and Plan (1) Pneumonia due to COVID-19 virus: Code(s): U07.1 - COVID-19; J12.82 - Pneumonia due to coronavirus disease 2019 Status: Acute Assessment and Plan: -noted on CXR -tested positive 3 weeks ago, still tested positive here on admission 12/06 -Started on remdesivir and dexamethasone. I had held her decadron as she was not requiring oxygen, however she is still wheezing diffusely despite scheduled albuterol so I will restart this -Rocephin and Zithromax for secondary antibacterial coverage -blood cultures NGTD (2) Acute hypoxemic respiratory failure due to COVID-19: Code(s): U07.1 - COVID-19; J96.01 - Acute respiratory failure with hypoxia Status: Acute Assessment and Plan: -it does not appear that patient has been on supplemental oxygen during admission, however her initial ABG showed a pO2 of 56 -she was 88% on RA at rest when I evaluated her -repeat ABG improved with pO2 of 83.8 -home oxygen evaluation completed and shows no oxygen requirement -pt wheezing, changed albuterol from prn to scheduled -no change in wheezing w/ albuterol, added decadron -her wheezing has resolved -elevated d-dimer, pt still sob, has been intermittently tachycardic, will check CTA chest to r/o PE (3) Sepsis: Code(s): A41.9 - Sepsis, unspecified organism Status: Acute Assessment and Plan: -febrile and tachycardic on arrival -had leukocytosis of 21.9 which has improved to 12.9 -she only had one dose of steroids -on IV rocephin and azithromycin for bacterial coverage, possibly secondary bacterial pneumonia -blood cultures pending, NGTD Subjective Date/time seen: 12/12/21 14:13 Interval history: 56-year-old female with no significant past medical history admitted to the hospital for covid pneumonia. Continues to have a cough. Reports chest pain when she coughs. She is sob with exertion. She is very anxious. Exam Narrative: General: No acute distress, non toxic Eyes: PERRL, no scleral icterus HEENT: NCAT, external ears normal, MMM Respiratory: No respiratory distress, lungs CTA bilaterally, no wheezing Cardiovascular: RRR, no murmur Abdominal: Soft, nontender, non distended, no rebound or guarding Musculoskeletal: Moves all 4 extremities, no edema Neurological: A/Ox3, speech normal, no facial asymmetry Skin: Warm, dry, no rashes Psychiatric: Normal affect, normal mood Objective Data Vital Signs Vital Signs: Vital Signs - 24 hr 12/11/21 15:05 12/11/21 20:00 12/12/21 00:00 Temperature 98.5 F 97.2 F L 96.9 F L Pulse Rate 86 86 80 Respiratory Rate 20 16 16 Blood Pressure 129/84 110/61 113/75 Pulse Oximetry 95 94 98 12/12/21 04:00 12/12/21 08:00 Temperature 97.8 F 97.1 F L Pulse Rate 79 98 Respiratory Rate 16 24 H Blood Pressure 111/79 100/72 Pulse Oximetry 94 92 Intake/Output Intake/Output: Intake & Output 12/09/21 12/10/21 12/11/21 12/12/21 23:59 23:59 23:59 23:59 Intake Total 2090 1292 2180 540 Output Total 600 1800 1450 1000 Balance 1490 -508 730 -460 Meds/Results Medications: Active Medications Generic Name Dose Route Start Last Admin Trade Name Freq PRN Reason Stop Dose Admin Acetaminophen 650 mg 12/07/21 01:32 12/11/21 04:58 Acetaminophen 325 Mg Tablet PO 650 mg Q4H PRN Administration Mild Pain (1-3) or Fever Albuterol 4 puff 12/09/21 20:00 12/12/21 09:23 Albuterol Sulfate (*Sp) Inhaler INHALATION 4 puff Q6HRT AG Administration Alprazolam 0.125 mg 12/12/21 08:35 12/12/21 09:27 Alprazolam (*Crx) 0.125 Mg Tablet PO 0.125 mg TID PRN Administration Anxiety Dextrose 12.5 gm 12/12/21 11:00 Dextrose 50% 25 Gm/50 Ml Syringe IV PUSH PRN PRN Hypoglycemia Protocol Enoxaparin Sodium 40 mg 12/07/21 09:00 12/12/21 09:27 Enoxaparin 40 Mg/0.4 Ml Syringe SUB-Q 40 mg DAILY AG Administration Glucagon 1 mg 12/12/21 11:00
[2021-12-12 16:00] VITALS: BP 118/86; PULSE 105; RESP 16; TEMP 37.1; O2SAT 98
[2021-12-12 17:04] LABS: Glucose Point of Care 385 mg/dl (65-105)
[2021-12-12] MEDS: INSULIN ASPART (*BKC) 100 UNITS/ML SUB-Q (17:46)
[2021-12-12 20:00] VITALS: BP 121/84; PULSE 91; RESP 18; TEMP 36.6; O2SAT 94
[2021-12-13] VITALS (8 sets, daily range): BP systolic 94–120; BP diastolic 62–86; PULSE 78–117; RESP 18–19; TEMP 35.8–36.2; O2SAT 92–96
--- NOTE | 2021-12-13 04:00 | PCRCNOTE ---
window of time for administration has passed. see next available administration.
[2021-12-13] MEDS: cefTRIAXone 2 GM in SODIUM CHLORIDE 0.9% IV 100 ML 200 ML IVPB (05:19)
[2021-12-13 07:23] LABS: Basophils Percent Auto 0.1 % (0.2-1.2); Hematocrit 33.1 % (37.0-47.0); Hemoglobin 10.4 g/dL (12.0-15.0); Immature Granulocyte Absolute 0.14 K/mm3 (0.00-0.031); Immature Granulocyte Percent A 1.1 % (0-0.5); Lymphocytes Absolute Auto 2.12 K/mm3 (0.9-3.2); Lymphocytes Percent Auto 16.9 % (18.3-44.2); Mean Corpuscular HGB Conc 31.4 g/dl (32-36); Mean Corpuscular Hemoglobin 26.1 pg (26-34); Mean Corpuscular Volume 83.2 fl (80-100); Mean Platelet Volume 9.3 fl (7.4-10.4); Monocytes Absolute Auto 1.2 K/mm3 (0.1-0.6); Monocytes Percent Auto 9.3 % (2.6-8.5); Neutrophils Absolute Auto 9.1 K/mm3 (1.3-6.7); Neutrophils Percent Auto 72.6 % (45.5-73.1); Platelet Count Result 794 k/mm3 (150-375); Red Blood Count 3.98 M/mm3 (4.2-5.4); Red Cell Distribution Width 17.9 % (11.5-14.5); White Blood Count 12.5 K/mm3 (4.5-10.0)
[2021-12-13 07:29] LABS: INR 1.1; Prothrombin Time 13.7 Seconds (11.1-14.7)
[2021-12-13 07:35] LABS: Alanine Aminotransferase 20 U/L (4-35); Albumin Level 3.2 g/dL (3.5-5.1); Alkaline Phosphatase 72 U/L (38-126); Anion Gap 6 mmol/L (8-16); Aspartate Amino Transferase 21 U/L (14-36); Bilirubin,Total 0.2 mg/dL (0.2-1.3); Blood Urea Nitrogen 15 mg/dL (7-17); Calcium 8.3 mg/dL (8.4-10.2); Carbon Dioxide 24 mmol/L (22-30); Chloride 106 mmol/L (98-107); Estimated CRCL calculation 89 ml/min; Estimated Glomerular Filt Rate > 60; Glucose 157 mg/dL (65-110); Sodium 136 mmol/L (137-145)
[2021-12-13 08:19] LABS: Glucose Point of Care 162 mg/dl (65-105)
[2021-12-13] MEDS: ALBUTEROL SULFATE (*SP) INHALER 4 PUFF INHALATION ×2 (08:44→14:10)
[2021-12-13] MEDS: ALPRAZolam (*CRX) 0.125 MG TABLET PO (08:55)
--- NOTE | 2021-12-13 10:06 | PCRCNOTE ---
HOME O2 EVAL REPEATED, NO NEEDS
[2021-12-13] MEDS: REMDESIVIR 100 MG/NS 250 ML 100 MG/250 ML BAG 250 MG IVPB (10:23)
[2021-12-13] MEDS: ENOXAPARIN 40 MG/0.4 ML SYRINGE SUB-Q (10:24)
[2021-12-13 12:25] LABS: Glucose Point of Care 321 mg/dl (65-105)
--- NOTE | 2021-12-13 12:27 | PM.DS ---
DS: Admitting Diagnosis Discharge Date 12/13/21 Admitting Diagnosis covid DS: Discharge Diagnosis Discharge Diagnosis (1) Pneumonia due to COVID-19 virus: Code(s): U07.1 - COVID-19; J12.82 - Pneumonia due to coronavirus disease 2019 Status: Acute Assessment and Plan: -noted on CXR -tested positive 3 weeks ago, still tested positive here on admission 12/06 -Started on remdesivir and dexamethasone. I had held her decadron as she was not requiring oxygen, however she was still wheezing so she did receive another dose of this -Rocephin and Zithromax x7 days for secondary antibacterial coverage -blood cultures negative -pt feeling much better today. Has not been on oxygen for duration of admission. All questions and concerns have been addressed. (2) Acute hypoxemic respiratory failure due to COVID-19: Code(s): U07.1 - COVID-19; J96.01 - Acute respiratory failure with hypoxia Status: Acute Assessment and Plan: -it does not appear that patient has been on supplemental oxygen during admission, however her initial ABG showed a pO2 of 56 -she was 88% on RA at rest when I evaluated her -repeat ABG improved with pO2 of 83.8 -pt wheezing, changed albuterol from prn to scheduled -no change in wheezing w/ albuterol, added decadron -her wheezing has resolved -elevated d-dimer, pt still sob, has been intermittently tachycardic, CTA negative for PE -home oxygen evaluation completed and shows no oxygen requirement, she is feeling better overall (3) Sepsis: Code(s): A41.9 - Sepsis, unspecified organism Status: Acute Assessment and Plan: -febrile and tachycardic on arrival -had leukocytosis of 21.9 which has improved to 12.5 -likely related to decadron in addition to infection -completed 7 days of IV rocephin and azithromycin for bacterial coverage, possibly secondary bacterial pneumonia -blood cultures negative (4) Anxiety: Code(s): F41.9 - Anxiety disorder, unspecified Status: Acute Assessment and Plan: -pt has been extremely anxious throughout admission -advised f/u w/ pcp as soon as possible for watermelon inspector antianxiolytic options -for now will send her home with hydroxyzine DS: Summary Hospital Course Reason for hospitalization: 56-year-old female with no significant past medical history admitted to the hospital for covid pneumonia. Please see HPI for further details. Hospital Course: Please see above for details of hospital course. Time spent discussing smoking cessation with patient: more than 10 minutes Status at Discharge Cognitive/behavioral status at discharge: stable Functional status at discharge: independent ambulation Overall status at discharge: patient is progressing back to baseline Time Spent with Patient Time attestation: Total time spent providing and/or coordinating discharge services: 35 Time spent: Greater than 30 minutes Exam Narrative: General: No acute distress, non toxic Eyes: PERRL, no scleral icterus HEENT: NCAT, external ears normal, MMM Respiratory: No respiratory distress, lungs CTA bilaterally, no wheezing Cardiovascular: RRR, no murmur Abdominal: Soft, nontender, non distended, no rebound or guarding Musculoskeletal: Moves all 4 extremities, no edema Neurological: A/Ox3, speech normal, no facial asymmetry Skin: Warm, dry, no rashes Psychiatric: Normal affect, normal mood DS: Data Data Completed and Pending Labs on day of discharge: Labs from last 24 hours 12/13/21 12/13/21 12/13/21 11:42 07:52 07:03 WBC RBC Hgb Hct MCV MCH MCHC RDW Plt Count MPV Immature Gran % (Auto) Neut % (Auto) Lymph % (Auto) Lares % (Auto) Eos % (Auto) Baso % (Auto) Lymph # (Auto) Lares # (Auto) Eos # (Auto) Baso # (Auto) Abs Immat Gran (auto) Absolute Neuts (auto) Absolute Nucleated RBC Nucleated RBC % PT INR
[2021-12-13] MEDS: INSULIN ASPART (*BKC) 100 UNITS/ML SUB-Q (12:35)
[2021-12-13 15:30] LABS: Glucose Point of Care 181 mg/dl (65-105)
== END 2021-12-13 17:20 | disposition home or self-care (01) | DRG 137 ==
LOC: ANHED 12-07 01:40 → ANH3MEDSUR 12-07 03:22
PROVIDERS: Emergency Medicine; Admitting Provider Internal Medicine; Emergency Provider Emergency Medicine; Visit Provider Physician Assistant
DX: U07.1 COVID-19 (principal); J12.82 Pneumonia due to coronavirus disease 2019; J15.9 Unspecified bacterial pneumonia; F41.9 Anxiety disorder, unspecified; M06.9 Rheumatoid arthritis, unspecified; F17.210 Nicotine dependence, cigarettes, uncomplicated
CPT/HCPCS: 36415; 36600; 71046; 71275; 80053; 82565; 82728; 82805; 82948; 83605; 83615; 83690; 84145; 84460; 84484; 85025; 85380; 85610; 85730; 86140; 87040; 93005; 94618; 94640; 96374; 99285; A9270; C9803; J0456; J0696; J1100; J1650; J1815; J7120; Q9967; U0003; U0005